=== PATIENT | female | born 1980 | race Caucasian/White ===

== ENCOUNTER → 2021-03-16 13:22 | Outpatient (BNVA) | payer OTHER, SELFPAY | PROVIDERS: Family Provider Family Medicine; Visit Provider Specialist | DX: H47.10 Unspecified papilledema (principal); R51.9 Headache, unspecified; Z87.891 Personal history of nicotine dependence | CPT/HCPCS: 99205 ==

== ENCOUNTER 2023-07-21 07:33 | Outpatient (CLI) | payer OTHER, SELFPAY ==
--- NOTE | 2023-07-21 07:46 | MM_ITS ---
WS: [id number] SCREENING DIGITAL BREAST TOMOSYNTHESIS MAMMOGRAM WITH CAD HISTORY: SCREENING COMPARISON: None available. Bilateral CC and MLO with tomosynthesis and synthetic mammography submitted. Computer aided detection analyzed. Breast composition: There are scattered areas of fibroglandular density. Well-circumscribed mass uppe r outer quadrant LEFT breast at a middle depth measures 10 x 12 x 13 mm. No additional suspicious mas ses or findings. IMPRESSION: MM/[place] [id number] BI-RADS: 0-Incomplete: Need additional imaging evaluation FOLLOW UP: Need Additional Imaging Recommendation: Limited LEFT breast ultrasound, upper outer quadrant LEFT breas t, middle depth.
== END 2023-07-21 07:34 | disposition home or self-care (01) ==
LOC: RAD 07:35
PROVIDERS: Family Provider Family Medicine; PCP Family Medicine; Visit Provider Family Medicine
DX: Z12.31 Encounter for screening mammogram for malignant neoplasm of breast (principal)
CPT/HCPCS: 77063; 77067

== ENCOUNTER 2023-08-28 10:59 | Outpatient (CLI) | payer OTHER, SELFPAY ==
--- NOTE | 2023-08-28 11:06 | US_ITS ---
WS: [id number] ULTRASOUND LEFT BREAST HISTORY: L BREAST LUMP COMPARISON: 07/21/2023 TECHNIQUE: 2-D and Doppler. Ultrasound directed to the upper outer quadrant of the LEFT breast as suggested by the mammography. T here is a simple but slightly lobulated cyst at 10:00 measuring 1.4 x 0.7 x 1.1 cm. Good through saxena smission. No solid component. US/US breast LT limited* [id number] IMPRESSION: BI-RADS: 2-Benign FOLLOW-UP: 1 Year Follow-up Patient to return to annual screening mammography. The mammographic mass descri bed is a simple cyst.
== END 2023-08-28 11:00 | disposition home or self-care (01) ==
LOC: RAD 11:00
PROVIDERS: Family Provider Family Medicine; PCP Family Medicine; Visit Provider Family Medicine
DX: N63.21 Unspecified lump in the left breast, upper outer quadrant (principal)
CPT/HCPCS: 76642

== ENCOUNTER 2024-12-18 23:50 | Observation (INO) | payer OTHER, SELFPAY ==
--- NOTE | 2024-12-18 23:52 | ECG_ITS ---
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1980 Requested By: Iman Grimes Order Number: [id number] Reading MD: MATT HINOJOSA Measurements Intervals [place] Rate: 69 P: 12 SD: 150 QRS: 33 QRSD: 73 T: 22 QT: 362 QTc: 390 Interpretive Statements SINUS RHYTHM LOW QRS VOLTAGE IN PRECORDIAL LEADS [QRS DEFLECTION < 1.0 mV IN CHEST LEADS] POSSIBLE ANTERIOR MYOCARDIAL INFARCTION , OF INDETERMINATE AGE [30 ms Q WAVE IN V3/V4, OR R < 0.2 mV IN V4] No previous ECG available for comparison Electronically Signed On 12-20-2024 20:14:47 CDT by MATT HINOJOSA [id number]
--- OUTSIDE RECORDS SUMMARY | 2024-12-18 23:57 | XMS_ITS | Clinical Summary ---
Author Organization [facility] Address [address] [place] [address] Care Team Providers Care Crop Setting Out Machine Operator Name Role Phone Kenneth Morrissey MD Primary Care Provider [phone] Allergies Active Allergy Reactions Criticality Noted Date Comments Codeine Nausea and Vomiting Low 03/15/2012 Morphine Nausea and Vomiting Low 03/15/2012 Medications No known medications Active Problems Problem Noted Date Diagnosed Date Sensory hearing loss, unilateral 03/15/2012 Overview (03/15/2012): low ferquency very mild SNHL right ear Family History Medical History Relation Name Comments Heart Disease Maternal Grandmother Asthma Mother Heart Disease Mother Relation Name Status Comments Maternal Grandmother Mother Social History Tobacco Use Types Packs/Day Years Used Date Smoking Tobacco: Former Cigarettes Q uit: 07/29/2011 Smokeless Tobacco: Never Alcohol Use Standard Drinks/Week Comments Yes 0 (1 standard drink = 0.6 oz pur e alcohol) OCCASIONAL Comments No Sex and Gender Information Value Date Recorded Sex Assigned at Not on file Legal Sex Female 1:37 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 Gender Identity Not on file Sexual Orientation Not on file Occupation Industry Job Start Date Job End Date Not on file Not on file Not on file Not on file Last Filed Vital Signs Vital Sign Reading Time Taken Comments Blood Pressure 107/69 03/15/2012 12:03 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 Pulse 70 03/15/2012 12:03 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 Temperature - - Respiratory Rate - - Oxygen Saturation - - Inhaled Oxygen Concentration - - Weight 99.8 kg (220 lb) 03/15/2012 12:03 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 Height 162.6 cm (5' 4 ) 03/15/2012 12:03 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 Body Mass Index 37.76 03/15/2012 12:03 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 Plan of Treatment Health Maintenance Due Date Last Done Comments DTAP/TDAP/TD VACCINES (1 - Tdap) 2001 HEPATITIS B VACCINES (1 of 3 - 19+ 3-dose series) 08/2000 HPV/Cotest (21-29) 2003 HPV VACCINES (1 - 3-dose SCDM series) 2009 CERVICAL CANCER SCREENING 02/13/2012 HPV/Cotest (30-65) 02/13/2012 PAP SMEAR 02/13/2012 BREAST CANCER SCREENING 2022 INFLUENZA VACCINE (#1) 2024 Insurance Formerly [facility] [place] [address] [id number] [facility] Care Teams Crop Setting Out Machine Operator Relationship Specialty Start Date End Date Kenneth Morrissey MD [address] [place] [address] [place] [phone] PCP - General Family Practice 03/15/12
[2024-12-18 23:59] VITALS: BP 152/95; PULSE 73; RESP 18; TEMP 36.5; O2SAT 99; BMI 42.9
[2024-12-19] VITALS (19 sets, daily range): BP systolic 101–162; BP diastolic 60–94; PULSE 63–86; RESP 14–20; TEMP 36.2–37.2; O2SAT 93–99; BMI 45.3
--- NOTE | 2024-12-19 00:01 | XRR_ITS ---
PROCEDURE INFORMATION: Exam: XR Chest Exam date and time: 12/19/2024 12:15 AM Age: 44 years old Clinical indication: Chest wall pain; Additional info: Cp TECHNIQUE: Imaging protocol: Radiologic exam of the chest. Views: 1 view. COMPARISON: No relevant prior studies available. FINDINGS: Lungs: Unremarkable. No consolidation. Pleural spaces: Unremarkable. No pleural effusion. No pneumothorax. Heart/Mediastinum: Unremarkable. No cardiomegaly. Bones/joints: Unremarkable. XR/XR chest 1V portable [id number] IMPRESSION: No acute findings.
--- NOTE | 2024-12-19 00:13 | USR_ITS ---
PROCEDURE INFORMATION: Exam: US Abdomen, Limited; Right Upper Quadrant Exam date and time: 12/19/2024 12:38 AM Age: 44 years old Clinical indication: Abdominal pain; Epigastric; Additional info: Ruq pain TECHNIQUE: Imaging protocol: Real time ultrasound of the abdomen with image documentation. Limited exam focused on the right upper quadrant. COMPARISON: No relevant prior studies available. FINDINGS: Liver: Hepatic echogenicity is within normal limits. Hepatic echotexture is normal. No surface nodularity. No solid hepatic lesion. Gallbladder: The gallbladder is mildly distended. Cholelithiasis is present. Stones are seen in the gallbladder neck. Question of mild gallbladder wall thickening measuring up to 4 mm at the body. Director Of Physical Education measurement of up to 8 mm at the fundus , which may be projectional or artifactual. No pericholecystic fluid. A positive Stone's sign was reported by the sales order administrator. Biliary ducts: The common bile duct measures up to 5 mm, within normal limits. Pancreas: The pancreas is partially obscured secondary to overlying bowel gas. No ductal dilatation is discretely identified. Right kidney: The right kidney measures 12.2 x 5.1 x 4.7 cm. Renal echogenicity is normal. Cortical thickness is normal. No hydronephrosis or solid renal mass is noted. Aorta: The imaged aorta is nonaneurysmal. Portal venous: The portal vein is patent with hepatopetal flow. Intraperitoneal space: No ascites is present. US/US gall bladder [id number] IMPRESSION: Cholelithiasis with questioned mild gallbladder wall thickening. Reportedly positive sonographic Stone's sign. Findings are equivocal for acute calculus cholecystitis. Correlate with patient history/laboratory values. Further characterization with HIDA scan should be considered. Consider surgical consultation.
--- NOTE | 2024-12-19 00:14 | ED_ITS ---
HPI - Abdominal Pain 2 General: Chief Complaint: Abdominal Pain Stated Complaint: abd pain n/v Time Seen by Provider: 12/18/24 23:51 Source: patient Mode of arrival: ambulatory Limitations: no limitations History of Present Illness: 44-year-old female states that she has b een having abdominal pain over the last 3 to 4 days. States been having right upper quadrant pains that worsened tonight states tonight the pain got severe rates it a 9 out of 10 has had some nausea. She denies any vomiting or fever denies any worse improved factors. Associated Symptoms: Denies chills, diarrhea, fever(s), nausea and vomiting Related Data Previous Rx's ?Medication ?Instructions ?Recorded topiramate 100 mg tablet (Topamax) 100 mg PO DAILY #30 tabs 03/16/21 Allergies Allergy/AdvReac Type Severity Reaction Status Date / Time codeine Allergy ADR-Headach Verified 12/19/24 00:02 e morphine Allergy ADR-Vomitin Verified 12/19/24 00:02 g Review of Systems 2 Const: Denies: fever(s), chills, body aches or change in appetite ENMT: Denies: throat pain or dental pain Card: Denies: chest pain Resp: Denies: dyspnea GI: Reports: abdominal pain; Denies: nausea, vomiting or diarrhea Musc: Denies: neck pain or back pain Skin/Breast: Denies: rash Neuro: Denies: headache(s) PFSH ED 2 PFSH: Social History Smoking and tobacco/nicotine status: former use of tobacco/nicotine Physical Exam 2 Const: COMMON NORMALS: no acute distress, patient oriented x3 and healthy appearing HENMT: COMMON NORMALS: normocephalic and atraumatic HEAD & SCALP: n ormocephalic and atraumatic Eye: COMMON NORMALS: conjunctivae normal CONJUNCTIVA: Yes conjunctivae normal Neck/C-Spine: COMMON NORMALS: full ROM and supple Chest: COMMONS NORMALS: normal inspection of the chest Resp: COMMON NORMALS: normal respiratory effort, No retractions, No use of accessory muscles and clear to auscultation bilaterally AUSCULTATION: clear to auscultation bilaterally Cardio: COMMON NORMALS: regular rate, regular rhythm and No murmurs present (Cardio) RATE: regular rate RHYTHM: regular rhythm GI: COMMON NORMALS: Normal to inspection, nondistended, normoactive bowel sounds present, Soft to palpation and no masses PALPATION: Yes Soft to palpation and Yes Tenderness to palpation present (GI) Details: RUQ Extremity: COMMON NORMALS: normal to inspection and full ROM Neuro: COMMON NORMALS: patient oriented x3, moves all extremities and no focal motor deficits Psych: COMMON NORMALS: mental status grossly normal, Normal thought process present and cooperative THOUGHT PROCESS: Normal thought process present Skin: COMMON NORMALS: no rashes or lesions noted and no wounds GENERAL SKIN EXAM: no rashes or lesions noted Course 2 Vital Signs: Vital signs: Vital Signs Temperature 97.7 F 12/18/24 23:59 Pulse Rate 67 12/19/24 00:45 Respiratory Rate 18 12/19/24 00:45 Blood Pressure 130/83 12/19/24 00:45 Pulse Oximetry 95 12/19/24 00:45 Oxygen Delivery Me thod Room Air 12/19/24 00:45 MDM - Abdominal Pain Medical Decision Making Patient presents for abdominal pain she is tender right upper quadrant has an elevated white count wall gallstones and thickened gallbladder wall of the consistent with cholecystitis spoke to surgeon will admit at this time Medical Records I reviewed the patient's medical records. Lab Data I reviewed the patient's lab results. 12/19/24 00:18 12/19/24 01:07 Labs/Radiology: Radiology Impressions Chest X-Ray 12/19/24 00:01 IMPRESSION: No acute findings. Gallbladder Ultrasound 12/19/24 00:13 IMPRESSION: Cholelithiasis with questioned mild gallbladder wall thickening. Reportedly positive sonographic Stone's sign. Findings are equivocal for acute calculus cholecystitis. Correlate with patient history/laboratory values. Further characterization with HIDA scan should be considered. Consider surgical consultation. ADDENDUM: 12/19/24 0155 THIS REPORT CONTAINS FINDINGS THAT MAY BE CRITICAL TO PATIENT CARE. The findings were verbally communicated via telephone conference with AXEL VIZCAINO at 1:54 AM CDT on 12/19/2024. The findings were acknowledged and understood. Laboratory Results WBC 14.47 10^3/uL (3.29-11.43) H 12/19/24 00:18 RBC 4.45 10^6/uL (3.85-5.65) 12/19/24 00:18 Hgb 13.00 g/dL (11.27-16.99) 12/19/24 00:18 Hct 39.9 % (36-47) 12/19/24 00:18 MCV 89.7 fl (85-98) 12/19/24 00:18 MCH 29.2 pg (27-33) 12/19/24 00:18 MCHC 32.6 g/dL (30-55) 12/19/24 00:18 RDW 13.8 % (12.1-15.1) 12/19/24 00:18 Plt Count 478 10^3/cmm (157-399) H 12/19/24 00:18 MPV 9.3 fL (7.4-10.4) 12/19/24 00:18 Neut % (Auto) 62.8 % 12/19/24 00:18 Lymph % (Auto) 27.3 % 12/19/24 00:18 Morrow % (Auto) 7.8 % 12/19/24 00:18 Eos % (Auto) 1.2 % 12/19/24 00:18 Baso % (Auto) 0.6 % 12/19/24 00:18 Neut # (Auto) 9.09 10^3/uL (1.8-7.7) H 12/19/24 00:18 Lymph # (Auto) 4.0 10^3/uL (0.8-4.8) 12/19/24 00:18 Morrow # (Auto) 1.1 10^3/uL (0.2-0.9) H 12/19/24 00:18 Eos # (Auto) 0.2 10^3/uL (0.0-0.8) 12/19/24 00:18 Baso # (Auto) 0.1 10^3/uL (0.0-0.1) 12/19/24 00:18 Nucleated RBC % (auto) 0 % 12/19/24 00:18 Nucleated RBCs # 0.0 /100WBC 12/19/24 00:18 Sodium 139 mmol/L (136-145) 12/19/24 01:07 Potassium 3.9 mmol/L (3.5-5.1) 12/19/24 01:07 Chloride 104 mmol/L (98-107) 12/19/24 01:07 Carbon Dioxide 24 mmol/L (22-29) 12/19/24 01:07 Anion Gap 14.9 (5-19) 12/19/24 01:07 BUN 12 mg/dL (6-20) 12/19/24 01:07 Creatinine 0.8 mg/dL (0.5-0.9) 12/19/24 01:07 GFR Calculation 78.7 mL/min (90-130) L 12/19/24 01:07 Glucose 114 mg/dL (65-115) 12/19/24 01:07 Calculated Osmolality 289 mOsm/kg (285-295) 12/19/24 01:07 Calcium 9.0 mg/dL (8.5-10.5) 12/19/24 01:07 Total Bilirubin 0.2 mg/dL (0.15-1.2) 12/19/24 01:07 AST 14 U/L (0-32) 12/19/24 01:07 ALT 14 U/L (0-33) 12/19/24 01:07 Alkaline Phosphatase 86 U/L (35-105) 12/19/24 01:07 Troponin T Baseline < 6 ng/L (0-10) 12/19/24 01:07 Total Protein 7.0 g/dL (6.6-8.7) 12/19/24 01:07 Albumin 3.9 g/dL (3.5-5.2) 12/19/24 01:07 Globulin 3.1 g/dL (1.3-4.6) 12/19/24 01:07 Lipase 27 U/L (13-60) 12/19/24 01:07 HCG, Qual Negative (Negative) 12/19/24 01:07 All radiology interpretation(s) finalized by discharge EKG Data EKG 1: I personally reviewed and interpreted this EKG as follows: EKG interpretation date: 12/18/24 EKG interpretation time: 23:58 Interpretation: nsr hr [address] elevation qrs 73 qtc 382 Discharge Plan Discharge Condition: Stable Prescriptions: No Action topiramate [Topamax] 100 mg tablet 100 mg PO DAILY Qty: 30 5RF Referrals: Stoney Browne MD [Primary Care Provider, Family Practice] Print Language: Cymraes Coding Level of Care Code ED Upper Doubler for Chg Fwd
[2024-12-19 00:25] LABS: Hematocrit 39.9 % (36-47); Hemoglobin 13.00 g/dL (11.27-16.99); Mean Corpuscular HGB Conc 32.6 g/dL (30-55); Mean Corpuscular Hemoglobin 29.2 pg (27-33); Mean Corpuscular Volume 89.7 fl (85-98); Nucleated Red Blood Cells % 0 %; Platelet Count 478 10^3/cmm (157-399); Red Blood Count 4.45 10^6/uL (3.85-5.65); White Blood Count 14.47 10^3/uL (3.29-11.43)
[2024-12-19] MEDS: ondansetron 2 mg/ML SDV 2 mL 4 MG IVP ×3 (00:31→13:28)
[2024-12-19] MEDS: HYDROmorphone 0.5 MG/0.5 ML INJ 1 MG IVP (00:31)
[2024-12-19 01:30] LABS: HCG, Serum Qual Negative (Negative)
[2024-12-19 01:39] LABS: Alanine Aminotransferase 14 U/L (0-33); Albumin Level 3.9 g/dL (3.5-5.2); Alkaline Phosphatase 86 U/L (35-105); Anion Gap 14.9 (5-19); Aspartate Amino Transferase 14 U/L (0-32); Blood Urea Nitrogen 12 mg/dL (6-20); Calcium 9.0 mg/dL (8.5-10.5); Carbon Dioxide 24 mmol/L (22-29); Chloride 104 mmol/L (98-107); Creatinine Clr Calc Pharmacy 113.0612; Globulin 3.1 g/dL (1.3-4.6); Glucose 114 mg/dL (65-115); Lipase 27 U/L (13-60); Osmolality Calculated 289 mOsm/kg (285-295); Potassium 3.9 mmol/L (3.5-5.1); Sodium 139 mmol/L (136-145); Total Protein 7.0 g/dL (6.6-8.7)
[2024-12-19 01:41] LABS: Troponin(5th) Baseline < 6 ng/L (0-10)
--- NOTE | 2024-12-19 02:07 | ECG_ITS ---
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
[2024-12-19] MEDS: HYDROmorphone 0.5 MG/0.5 ML INJ IVP ×2 (02:17→06:03)
[2024-12-19] MEDS: piperacillin-tazobactam 3.375 GM in sodium chloride 0.9% (plus) 50 ML IV ×4 (02:20→23:35)
--- NOTE | 2024-12-19 03:20 | P.HP_ITS ---
Providers/Chief Complaint 2 Admitting Physician: Kristine Leach MD--- patient seen after 12 midnight Primary Care Provider: Stoney Browne MD Chief Complaint: abd pain n/v History of Present Illness Sadiq Kapoor is a 44 year old female who had had ongoing intermittent right upper quadrant pain off-and-on over the past several months that she did not think anything much about it. This time the pain came all of a sudden doubled over in a very excruciating right upper quadrant pain patient is a fair female in her 40s, fertile, and fatty classifies gallbladder disease, the 4 Fs. Gallbladder was significant for gallbladder disease for cholecystitis. LFTs were normal showing that there are no obstructive pattern. ED attending consulted the surgeon for surgery. Patient is n.p.o. after 12 midnight and on Dilaudid for pain management patient is allergic to morphine. Patient is resting well in the room. Patient for surgery today. Patient was seen after 12 midnight by the hospitalist, myself. Patient has some leukocytosis but no febrile illness patient had received a dose of Zosyn and it is hughes to continue empiric antibiotics at this time. Review of Systems 2 Narrative: System review upon tenogram reviewed were significant for right upper quadrant pain of the GI otherwise unremarkable. Medications/Allergies Home Medications ?Medication ?Instructions ?Recorded ?Confirmed ?Last Taken ?Type topiramate 100 mg tablet (Topamax) 100 mg PO DAILY #30 tabs 03/16/21 03/16/21 Unknown Rx Allergies Allergy/AdvReac Type Severity Reaction Status Date / Time codeine Allergy ADR-Headach Verified 12/19/24 00:02 e morphine Allergy ADR-Vomitin Verified 12/19/24 00:02 g PFSH Acute 2 PFSH: Social History Smoking and tobacco/nicotine status: former use of tobacco/nicotine Vitals/I&O/Wt Last Vital Signs Temp 97.7 F 12/18/24 23:59 Pulse 68 12/19/24 02:23 Resp 18 12/19/24 00:45 BP 139/83 12/19/24 02:23 Pulse Ox 96 12/19/24 02:23 O2 Del Method Room Air 12/19/24 02:16 12/18/24 12/18/24 12/19/24 14:59 22:59 06:59 Intake Total 50 / 50 Balance 50 / 50 Weight last 48 hrs Weight 119.658 kg Weight 113.398 kg Physical Exam 2 Narrative: Patient is not ill-appearing but looks fairly uncomfortable however responding to Dilaudid every 4 hours as needed HEENT normocephalic atraumatic neck neck is supple cardiovascular heart rate is regular lungs are pretty much clear abdomen is soft with some tenderness in the right upper quadrant region. unremarkable extremities are intact no edema has good pulses neurology has no focality lab studies lab studies reviewed and noted. Data 12/19/24 03:49 12/19/24 03:49 A&P Assessment and plan 1. Acute cholecystitis: 2. Right upper quadrant pain: 3. Leukocytosis: 4. Dehydration: Plan: #1 Acute cholecystitis - Admit to general medical floor for care - N.p.o. after 12 midnight for possible procedure - IV fluid normal saline at 100 cc/h. - Empiric antibiotics with Zosyn per order - General Surgeon on case, consulted by ED attending #2 Leukocytosis - Due to infection or inflammatory process - Continue empiric antibiotics with Zosyn good for the right upper quadrant processes in infection - Continue hydration gently #3 Pain management - Pain is based on the inflammation of the gallbladder - Continue IV Dilaudid 0.5 mg every 4 as needed and this has been effective - Patient has been encouraged to ask for pain medication once sign of pain is reoccuring #4 GI and DVT prophylaxis in place Dehydration -Continue rehydrating PDMP PDMP Reviewed: Not Reviewed Attestations 2 Medical Necessity Statement*: This is a new patient admission for much excruciating pain with finding of acute cholecystitis requiring surgery. Patient needs at least 2 midnights for optimization of care. Coding Level of Care Code 14201 Diagnoses Acute cholecystitis K81.0 Right upper quadrant pain R10.11 Leukocytosis D72.829 Dehydration E86.0 Time Spent (min) 60
[2024-12-19 03:55] LABS: Hematocrit 39.4 % (36-47); Hemoglobin 12.50 g/dL (11.27-16.99); Mean Corpuscular HGB Conc 31.7 g/dL (30-55); Mean Corpuscular Hemoglobin 29.3 pg (27-33); Mean Corpuscular Volume 92.5 fl (85-98); Nucleated Red Blood Cells % 0 %; Platelet Count 431 10^3/cmm (157-399); Red Blood Count 4.26 10^6/uL (3.85-5.65); White Blood Count 12.69 10^3/uL (3.29-11.43)
[2024-12-19 04:12] LABS: Alanine Aminotransferase 14 U/L (0-33); Albumin Level 3.8 g/dL (3.5-5.2); Alkaline Phosphatase 89 U/L (35-105); Anion Gap 16.4 (5-19); Aspartate Amino Transferase 14 U/L (0-32); Blood Urea Nitrogen 13 mg/dL (6-20); Calcium 8.9 mg/dL (8.5-10.5); Carbon Dioxide 22 mmol/L (22-29); Chloride 105 mmol/L (98-107); Creatinine Clr Calc Pharmacy 116.6825; Globulin 3.3 g/dL (1.3-4.6); Glucose 140 mg/dL (65-115); Magnesium 2.0 mg/dL (1.7-2.3); Osmolality Calculated 290 mOsm/kg (285-295); Potassium 4.4 mmol/L (3.5-5.1); Sodium 139 mmol/L (136-145); Total Protein 7.1 g/dL (6.6-8.7)
[2024-12-19 08:25] LABS: Glucose Urine UA Negative (Normal); Nitrate Urine Negative (Negative); Specific Gravity, Urine 1.023 (1.005-1.030)
[2024-12-19 08:30] LABS: Add Urine Microscopic? YES
--- NOTE | 2024-12-19 08:31 | ECG_ITS ---
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
--- NOTE | 2024-12-19 08:47 | P.CONIM_ITS ---
Providers/Reason For Consult 2 Consulting Physician/Specialty*: Dr Abraham Foster Reason for Consult*: Abdominal Pain Attending Physician: Juanjo Ozuna MD Primary Care Provider: Stoney Browne MD History of Present Illness History of Present Illness Sadiq Kapoor is a 44 year old female with chief complaint of abdominal pain started on Monday. Her pain was in the midepigastric right upper quadrant region and has progressed since Monday. She came to the emergency room yesterday with worsening pain and was found to have an elevated white blood cell count and a thickened gallbladder with stones on right upper quadrant ultrasound. She describes the pain as 6-7 out of 10 in severity and radiates to the right shoulder. She has associated nausea but denies any emesis during this time. She has no changes in her bowel movements. She denies any tea colored urine or acholic stools. This is the first time that she has had any episodes like this. She has no other complaints at this time. Review of Systems 2 Narrative: System review upon tenogram reviewed were significant for right upper quadrant pain of the GI otherwise unremarkable. Medications/Allergies Home Medications ?Medication ?Instructions ?Recorded ?Confirmed ?Last Taken ?Type No Known Home Medications 12/19/2412/09 Unknown History Allergies Allergy/AdvReac Type Severity Reaction Status Date / Time codeine Allergy ADR-Headach Verified 12/19/24 00:02 e morphine Allergy ADR-Vomitin Verified 12/19/24 00:02 g Current Medications Generic Name Dose Route Start Last Admin Trade Name Freq PRN Reason Stop Dose Admin Docusate Sodium 100 mg 12/19/24 09:00 12/19/24 07:52 Docusate Sodium 100 Mg Capsule PO Not Given BID JERICHO Hydromorphone HCl 0.5 mg 12/19/24 03:18 12/19/24 06:03 Hydromorphone 0.5 Mg/0.5 Ml Inj IVP 0.5 mg Q4H PRN Administration MODERATE AGITATION Piperacillin Sod/Tazobactam 50 mls @ 100 mls/hr 12/19/24 02:00 12/19/24 08:37 Sod 3.375 gm/ Sodium Chloride IV Infused Q6H JERICHO Infusion Protocol Sodium Chloride 1,000 mls @ 100 mls/hr 12/19/24 03:31 12/19/24 04:46 Sodium Chloride 0.9% IV 100 mls/hr .Q10H JERICHO Administration PFSH Acute 2 PFSH: Social History Smoking and tobacco/nicotine status: former use of tobacco/nicotine Vitals/I&O/Wt Last Vital Signs Temp 98.2 F 12/19/24 07:58 Pulse 63 12/19/24 07:58 Resp 18 12/19/24 07:58 BP 135/83 12/19/24 07:58 Pulse Ox 98 12/19/24 07:58 O2 Del Method Room Air 12/19/24 07:58 12/18/24 12/19/24 12/19/24 22:59 06:59 14:59 Intake Total 50 / 50 50 / 50 Output Total 200 / 200 Balance 50 / 50 -150 / -150 Weight last 48 hrs Weight 264 lb Weight 263 lb 12.8 oz Weight 250 lb Physical Exam 2 Narrative: Patient is not ill-appearing but looks fairly uncomfortable however responding to Dilaudid every 4 hours as needed HEENT normocephalic atraumatic neck neck is supple cardiovascular heart rate is regular lungs are pretty much clear abdomen is soft with some tenderness in the right upper quadrant region, + tenderness in RUQ region with no reboun rigidity or guarding. unremarkable extremities are intact no edema has good pulses neurology has no focality lab studies lab studies reviewed and noted. Data 12/19/24 03:49 12/19/24 03:49 A&P Assessment and plan 1. Right upper quadrant pain: 2. Acute cholecystitis: Will plan 4 OR today for cholecystectomy secondary to persistent symptoms and findings on workup. Patient received IV antibiotics in the ER and is currently receiving another dose of Zosyn in her room currently. She is NPO. We discussed both surgical and nonsurgical interventions and with her and her agreed to proceed with surgical intervention. All questions and concerns were answered prior to deciding on surgery. All risks and benefits of surgery were discussed with the patient and her prior to proceeding with any surgical intervention. PDMP PDMP Reviewed: Not Reviewed Coding Level of Care Code Acute Code for Chg Fwd Diagnoses Right upper quadrant pain R10.11 Acute cholecystitis K81.0
--- OUTSIDE RECORDS SUMMARY | 2024-12-19 09:17 | XMS_ITS | Clinical Summary ---
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 Gender Identity Not on file Sexual Orientation Not on file Occupation Industry Job Start Date Job End Date Not on file Not on file Not on file Not on file Last Filed Vital Signs Vital Sign Reading Time Taken Comments Blood Pressure 107/69 03/15/2012 12:03 PM SOLE STAINER Pulse 70 03/15/2012 12:03 PM SOLE STAINER Temperature - - Respiratory Rate - - Oxygen Saturation - - Inhaled Oxygen Concentration - - Weight 99.8 kg (220 lb) 03/15/2012 12:03 PM SOLE STAINER Height 162.6 cm (5' 4 ) 03/15/2012 12:03 PM SOLE STAINER Body Mass Index 37.76 03/15/2012 12:03 PM SOLE STAINER Plan of Treatment Health Maintenance Due Date Last Done Comments DTAP/TDAP/TD VACCINES (1 - Tdap) 2001 HEPATITIS B VACCINES (1 of 3 - 19+ 3-dose series) 08/2000 HPV/Cotest (21-29) 2003 HPV VACCINES (1 - 3-dose SCDM series) 2009 CERVICAL CANCER SCREENING 02/13/2012 HPV/Cotest (30-65) 02/13/2012 PAP SMEAR 02/13/2012 BREAST CANCER SCREENING 2022 INFLUENZA VACCINE (#1) 2024 Insurance [facility] [address] [id number] [facility] Care Teams Pricing/Signage Team Member Relationship Specialty Start Date End Date Kenneth Morrissey MD [address] [place] [address] [place] [phone] PCP - General Family Practice 03/15/12
[2024-12-19] MEDS: metoclopramide 5 mg/mL SDV 2 mL 10 MG IVP (10:56)
[2024-12-19] MEDS: fentaNYL 50 mcg/mL INJ 2mL IVP (10:57)
--- NOTE | 2024-12-19 10:57 | ANES.PREANE2 ---
Pre-Anesthetic Assessment Height/Weight: Height 1.63 m Weight 119.748 kg Temp Pulse Resp BP Pulse Ox O2 Del Method 97.2 F L 65 17 141/83 95 Room Air 12/19/24 10:05 12/19/24 10:05 12/19/24 10:05 12/19/24 10:05 12/19/24 10:05 12/19/24 10:05 Preop Diagnosis: Cholecystitis Operation Date: 12/19/24 11:05 Proposed Procedures p Laparoscopic Cholecystectomy(Not Applicable) - Abraham Foster DO Last intake: Intake Last Liquid Date 12/18/24 Last Liquid Time 22:00 Last Solid Date 12/18/24 Last Solid Time 16:30 Social No alcohol and No tobacco Exam alert, oriented x 3, clear to auscultation bilaterally and regular rate & rhythm Airway Submandibular: within normal limits Cervical ROM: within normal limits Mallampati: Class II History/ROS No significant history except as noted Metabolic Morbid Obesity Anesthetic Plan ASA status: 3E Anesthesia: General (GETA/RSI) Medications/Allergies Home Medications ?Medication ?Instructions ?Recorded ?Confirmed ?Last Taken ?Type No Known Home Medications 12/19/24 12/19/24 Unknown History Allergies Allergy/AdvReac Type Severity Reaction Status Date / Time codeine Allergy ADR-Headach Verified 12/19/24 00:02 e morphine Allergy ADR-Vomitin Verified 12/19/24 00:02 g Current Medications Generic Name Dose Route Start Last Admin Trade Name Freq PRN Reason Stop Dose Admin Docusate Sodium 100 mg 12/19/24 09:00 12/19/24 07:52 Docusate Sodium 100 Mg Capsule PO Not Given On Hold: 12/19/24 10:12 BID JERICHO Comment: Order held by Process Transfer Hydromorphone HCl 0.5 mg 12/19/24 03:18 12/19/24 06:03 Hydromorphone 0.5 Mg/0.5 Ml Inj IVP 0.5 mg On Hold: 12/19/24 10:12 Q4H PRN Administration Comment: Order held by Process MODERATE AGITATION Transfer Piperacillin Sod/Tazobactam 50 mls @ 100 mls/hr 12/19/24 02:00 12/19/24 08:37 Sod 3.375 gm/ Sodium Chloride IV Infused On Hold: 12/19/24 10:12 Q6H JERICHO Infusion Comment: Order held by Process Protocol Transfer Sodium Chloride 1,000 mls @ 100 mls/hr 12/19/24 03:31 12/19/24 04:46 Sodium Chloride 0.9% IV 100 mls/hr On Hold: 12/19/24 10:12 .Q10H JERICHO Administration Comment: Order held by Process Transfer [facility] Anesthesia Social History Smoking and tobacco/nicotine status: former use of tobacco/nicotine Data Anesthesia 12/19/24 03:49 12/19/24 03:49 Short CBC 12/19/24 12/19/24 Range/Units 00:18 03:49 WBC 14.47 H 12.69 H (3.29-11.43) 10^3/uL Hgb 13.00 12.50 (11.27-16.99) g/dL Hct 39.9 39.4 (36-47) % MCV 89.7 92.5 (85-98) fl Plt Count 478 H 431 H (157-399) 10^3/cmm Neut % (Auto) 62.8 79.9 % Neut # (Auto) 9.09 H 10.15 H (1.8-7.7) 10^3/uL BMP 12/19/24 12/19/24 12/19/24 00:18 01:07 03:49 Sodium Cancelled 139 139 Potassium Cancelled 3.9 4.4 Chloride Cancelled 104 105 Carbon Dioxide Cancelled 24 22 BUN Cancelled 12 13 Creatinine Cancelled 0.8 0.8 Glucose Cancelled 114 140 H Calcium Cancelled 9.0 8.9 Cardiac Enzymes 12/19/24 12/19/24 Range/Units 00:18 01:07 Troponin T Baseline Cancelled < 6 Liver Function 12/19/24 12/19/24 12/19/24 Range/Units 00:18 01:07 03:49 Total Bilirubin Cancelled 0.2 0.3 AST Cancelled 14 14 ALT Cancelled 14 14 Alkaline Phosphatase Cancelled 86 89 Albumin Cancelled 3.9 3.8 Urine 12/19/24 Range/Units 08:05 Urine Color Yellow (Yellow) Urine Appearance Cloudy A (CLEAR) Urine pH 6.5 (5-7) Ur Specific [place] 1.023 (1.005-1.030) Urine Protein Trace A (Negative) Urine Glucose (UA) Negative (Normal) Urine Ketones Negative (Negative) Urine Nitrate Negative (Negative) Urine Bilirubin Negative (Negative) Ur Leukocyte Esterase Trace A (Negative) Urine RBC >100 H (0-2) /hpf Urine WBC 11-20 H (0-5) /hpf
[2024-12-19] MEDS: ceFAZolin 3,000 MG in sodium chloride 0.9% (plus) 100 ML 200 MG IV (11:41)
--- NOTE | 2024-12-19 12:21 | W.PM.BPON ---
Preop Dx- acute cholecystitis Post op Dx- Same Procedure- Laparoscopic Cholecystectomy Complications- None EBL- 25 mls Specimen- Gallbladder
--- NOTE | 2024-12-19 13:05 | ANE.PACU2 ---
Inpatient post-anesthesia follow up: Airway intact: Yes Vital signs: Temperature 97.1 F Pulse Rate 68 Respiratory Rate 17 Blood Pressure 116/62 Pulse Oximetry 94 Oxygen Delivery Me thod Room Air Oxygen Flow Rate Fraction of Inspir ed Oxygen Hydration adequate: Yes Nausea and vomiting: No Pain level: controlled Mental status: Baseline
[2024-12-20] VITALS: BP 100/59; PULSE 77; RESP 16; TEMP 36.6; O2SAT 94
[2024-12-20 03:19] LABS: Hematocrit 35.0 % (36-47); Hemoglobin 11.50 g/dL (11.27-16.99); Mean Corpuscular HGB Conc 32.9 g/dL (30-55); Mean Corpuscular Hemoglobin 29.3 pg (27-33); Mean Corpuscular Volume 89.3 fl (85-98); Nucleated Red Blood Cells % 0 %; Platelet Count 421 10^3/cmm (157-399); Red Blood Count 3.92 10^6/uL (3.85-5.65); White Blood Count 17.06 10^3/uL (3.29-11.43)
[2024-12-20 03:44] LABS: Anion Gap 17.2 (5-19); Blood Urea Nitrogen 12 mg/dL (6-20); Calcium 8.3 mg/dL (8.5-10.5); Carbon Dioxide 22 mmol/L (22-29); Chloride 104 mmol/L (98-107); Creatinine Clr Calc Pharmacy 116.7345; Glucose 135 mg/dL (65-115); Osmolality Calculated 290 mOsm/kg (285-295); Potassium 4.2 mmol/L (3.5-5.1); Sodium 139 mmol/L (136-145)
[2024-12-20 03:58] VITALS: BP 112/70; PULSE 66; RESP 16; TEMP 36.4; O2SAT 96
--- NOTE | 2024-12-20 07:36 | P.OP_ITS ---
Anesthesia: [General anesthesia] Complications: [None] Brief history/preop diagnosis: [This is a 44-year-old female who presents to the emergency room with chief complaint of right upper quadrant pain and was found to have acute cholecystitis on workup and we elected to proceed with laparoscopic cholecystectomy.] Full operative report: [Preoperative diagnosis acute cholecystitis Postoperative diagnosis acute cholecystitis Procedure: Laparoscopic cholecystectomy Specimen gallbladder EBL: 25 mL Complications: None Procedure: Patient was brought to the operating room and placed on the operating table in supine position. Abdomen was prepped and draped in usual sterile fashion. A timeout was completed verifying correct patient procedure and positioning prior to beginning procedure. Using a 11 blade scalpel incision was made inferior to the umbilicus approximately 1 cm and using a 10 mm Optiview trocar and laparoscope the abdomen was entered under direct visualization. The abdomen was then insufflated to 1215 mmHg the patient tolerated well. The patient was then placed in reverse indelible position with the right side up. 3 more ports were placed a 12 mm epigastric port was placed under direct visualization and then 2 more right subcostal 5 mm ports were placed under direct visualization. No bleeding or injury was noted on initial insertion. A grasper was placed to the lateral 5 mm port and grasped the dome of the gallbladder and this was retracted up over the dome of the liver to the dorsal right shoulder to fully expose the gallbladder and close triangle. Using another grasper and a [place] dissector the gallbladder fundus was grabbed and retracted laterally to expose the contents of close triangle using a [place] dissector this was fully dissected out. Great care was taken to avoid injury to any vessels or surrounding structures. Once the close triangle was fully dissected and the cystic duct and cystic artery were identified clip structural analyst was used to doubly clipped both the artery and the duct as well as 1 more proximal clip and laparoscopic samuel were used to transect the duct and the artery. Once this was completed and after a sufficient view of close triangle to ensure safety and no other structures were ligated the gallbladder was then removed from the gallbladder fossa using lecture cautery. Taking care to maintain hemostasis and no bile or stones were spilled during this process. The gallbladder was found to be acutely edematous and erythematous from the cholecystitis. This was dissected off the gallbladder fossa and placed in an Endo catch bag. This was then removed from the field through the epigastric port. Again once this was done the abdomen was irrigated and hemostasis was maintained throughout this process. Once this was completed the fascia of the 12 mm ports at the epigastric and the inferior umbilical port site were closed using 0 Vicryl suture and the skin was closed using 4-0 Monocryl sutures in a inverted subcuticular fashion. Skin glue was then placed over these incision sites and the patient was taken the PACU in stable condition. Patient tolerated the procedure well.]
--- NOTE | 2024-12-20 07:41 | P.PN_ITS ---
Subjective 2 Subjective: Patient seen and examined doing well this morning with no complaints. Tolerating her diet. Pain is well-controlled. She denies any nausea or vomiting. Ambulating in her room with no issues. Voiding spontaneously. Having bowel movements and passing flatus. No acute events overnight. Vitals/I&O/Wt Last Vital Signs Temp 97.6 F 12/20/24 03:58 Pulse 66 12/20/24 03:58 Resp 16 12/20/24 03:58 BP 112/70 12/20/24 03:58 Pulse Ox 96 12/20/24 03:58 O2 Del Method Room Air 12/20/24 00:00 12/19/24 12/20/24 12/20/24 22:59 06:59 14:59 Intake Total 590 / 1790 1096.667 / 2886.667 Output Total 400 / 610 500 / 1110 Balance 190 / 1180 596.667 / 1776.667 Weight last 48 hrs Weight 266 lb Weight 264 lb Weight 263 lb 12.8 oz Weight 250 lb Physical Exam 2 Narrative: Patient is not ill-appearing but looks fairly uncomfortable however responding to Dilaudid every 4 hours as needed HEENT normocephalic atraumatic neck neck is supple cardiovascular heart rate is regular lungs are pretty much clear abdomen is soft with some tenderness in the right upper quadrant region, + tenderness in RUQ region with no reboun rigidity or guarding. unremarkable extremities are intact no edema has good pulses neurology has no focality lab studies lab studies reviewed and noted. Data 12/20/24 02:58 12/20/24 02:58 A&P Assessment and plan 1. Acute cholecystitis: Patient doing well this morning. Tolerated surgery well yesterday. No complaints this morning. Pain is well-controlled and tolerating a diet. Ambulating in her room. DC IV antibiotics. No need for further antibiotics. Pain control and nausea control. Okay for discharge home from my standpoint. Will discharge home today. PDMP PDMP Reviewed: Not Reviewed Attestations 2 Medical Necessity Statement*: Will discharge home today. Coding Level of Care Code Acute Code for [facility] Diagnoses Acute cholecystitis K81.0
[2024-12-20 07:43] VITALS: BP 112/69; PULSE 68; RESP 18; TEMP 36.7; O2SAT 95
--- NOTE | 2024-12-20 08:45 | PC.NURSE ---
Patient is A&Ox3. Respirations even and non-labored on room air. Reviewed patient discharge with patient and significant other. Patient verbalized understanding of discharge instructions including follow up appointments and pain medications. Patient was wheel chaired to private car at this time.
--- NOTE | 2024-12-20 09:21 | P.DS_ITS ---
Discharge Providers Date of Admission: 12/19/24 03:31 Date of Discharge: December 20, 2024 Attending Provider at Admission: Kristine Leach MD Attending Provider at Discharge: Juanjo Ozuna MD Primary Care Provider: Stoney Browne MD Diagnoses at Discharge Discharge Diagnosis 1. Acute cholecystitis: Details from hospital stay: Patient had laparoscopic cholecystectomy yesterday white count still elevated but was doing well. I was unable to see the patient personally as she was discharged prior to my arriving in her room by Dr. Foster Reason for Visit Reason for Visit: abd pain n/v Discharge Data Studies Completed and Pending Completed Studies During Hospitalization Category Date Time Status XR chest 1V portable [id number] Stat Exams 12/19/24 00:01 Completed US gall bladder [id number] Stat Ultrasound 12/19/24 00:13 Completed Pending at discharge Category Date Time Status Pathology: Surgical [PTH] Routine Pth 12/19/24 12:22 Received Radiology Impressions Chest X-Ray 12/19/24 00:01 IMPRESSION: No acute findings. Gallbladder Ultrasound 12/19/24 00:13 IMPRESSION: Cholelithiasis with questioned mild gallbladder wall thickening. Reportedly positive sonographic Stone's sign. Findings are equivocal for acute calculus cholecystitis. Correlate with patient history/laboratory values. Further characterization with HIDA scan should be considered. Consider surgical consultation. ADDENDUM: 12/19/24 0155 THIS REPORT CONTAINS FINDINGS THAT MAY BE CRITICAL TO PATIENT CARE. The findings were verbally communicated via telephone conference with AXEL VIZCAINO at 1:54 AM CDT on 12/19/2024. The findings were acknowledged and understood. Laboratory Results WBC 17.06 10^3/uL (3.29-11.43) H 12/20/24 02:58 RBC 3.92 10^6/uL (3.85-5.65) 12/20/24 02:58 Hgb 11.50 g/dL (11.27-16.99) 12/20/24 02:58 Hct 35.0 % (36-47) L 12/20/24 02:58 MCV 89.3 fl (85-98) 12/20/24 02:58 MCH 29.3 pg (27-33) 12/20/24 02:58 MCHC 32.9 g/dL (30-55) 12/20/24 02:58 RDW 14.0 % (12.1-15.1) 12/20/24 02:58 Plt Count 421 10^3/cmm (157-399) H 12/20/24 02:58 MPV 9.1 fL (7.4-10.4) 12/20/24 02:58 Neut % (Auto) 79.2 % 12/20/24 02:58 Lymph % (Auto) 13.2 % 12/20/24 02:58 [place] % (Auto) 6.9 % 12/20/24 02:58 Eos % (Auto) 0.1 % 12/20/24 02:58 Baso % (Auto) 0.1 % 12/20/24 02:58 Neut # (Auto) 13.51 10^3/uL (1.8-7.7) H 12/20/24 02:58 Lymph # (Auto) 2.3 10^3/uL (0.8-4.8) 12/20/24 02:58 [place] # (Auto) 1.2 10^3/uL (0.2-0.9) H 12/20/24 02:58 Eos # (Auto) 0.0 10^3/uL (0.0-0.8) 12/20/24 02:58 Baso # (Auto) 0.0 10^3/uL (0.0-0.1) 12/20/24 02:58 Nucleated RBC % (auto) 0 % 12/20/24 02:58 Nucleated RBCs # 0.0 /100WBC 12/20/24 02:58 Sodium 139 mmol/L (136-145) 12/20/24 02:58 Potassium 4.2 mmol/L (3.5-5.1) 12/20/24 02:58 Chloride 104 mmol/L (98-107) 12/20/24 02:58 Carbon Dioxide 22 mmol/L (22-29) 12/20/24 02:58 Anion Gap 17.2 (5-19) 12/20/24 02:58 BUN 12 mg/dL (6-20) 12/20/24 02:58 Creatinine 0.8 mg/dL (0.5-0.9) 12/20/24 02:58 GFR Calculation 78.7 mL/min (90-130) L 12/20/24 02:58 Glucose 135 mg/dL (65-115) H 12/20/24 02:58 Calculated Osmolality 290 mOsm/kg (285-295) 12/20/24 02:58 Calcium 8.3 mg/dL (8.5-10.5) L 12/20/24 02:58 Phosphorus 3.3 mg/dL (2.5-4.5) 12/19/24 03:49 Magnesium 2.0 mg/dL (1.7-2.3) 12/19/24 03:49 Total Bilirubin 0.3 mg/dL (0.15-1.2) 12/19/24 03:49 AST 14 U/L (0-32) 12/19/24 03:49 ALT 14 U/L (0-33) 12/19/24 03:49 Alkaline Phosphatase 89 U/L (35-105) 12/19/24 03:49 Troponin T Baseline < 6 ng/L (0-10) 12/19/24 01:07 Total Protein 7.1 g/dL (6.6-8.7) 12/19/24 03:49 Albumin 3.8 g/dL (3.5-5.2) 12/19/24 03:49 Globulin 3.3 g/dL (1.3-4.6) 12/19/24 03:49 Lipase 27 U/L (13-60) 12/19/24 01:07 HCG, Qual Negative (Negative) 12/19/24 01:07 Urine Color Yellow (Yellow) 12/19/24 08:05 Urine Appearance Cloudy (CLEAR) A 12/19/24 08:05 Urine pH 6.5 (5-7) 12/19/24 08:05 Ur Specific [place] 1.023 (1.005-1.030) 12/19/24 08:05 Urine Protein Trace (Negative) A 12/19/24 08:05 Urine Glucose (UA) Negative (Normal) 12/19/24 08:05 Urine Ketones Negative (Negative) 12/19/24 08:05 Urine Blood 3+ (Negative) A 12/19/24 08:05 Urine Nitrate Negative (Negative) 12/19/24 08:05 Urine Bilirubin Negative (Negative) 12/19/24 08:05 Urine Urobilinogen 1.0 mg/dL (Negative) 12/19/24 08:05 Ur Leukocyte Esterase Trace (Negative) A 12/19/24 08:05 Urine RBC >100 /hpf (0-2) H 12/19/24 08:05 Urine WBC 11-20 /hpf (0-5) H 12/19/24 08:05 Ur Squamous Epith Cells 11-20 /hpf (0-5) H 12/19/24 08:05 Amorphous Sediment Not Reportable 12/19/24 08:05 Urine Bacteria 4+ /hpf (NONE) H 12/19/24 08:05 Hyaline Casts 4.11 /lpf 12/19/24 08:05 Vitals Last Vital Signs Temp 98.1 F 12/20/24 07:43 Pulse 68 12/20/24 07:43 Resp 18 12/20/24 07:43 BP 112/69 12/20/24 07:43 Pulse Ox 95 12/20/24 07:43 O2 Del Method Room Air 12/20/24 07:43 Discharge Plan Discharge Patient Disposition: Home Condition: Stable Prescriptions: New hydrocodone-acetaminophen 5-325 mg Tablet 1 tab PO Q6H PRN (Reason: Moderate Pain) 7 Days Qty: 20 0RF Discharge Order = DC NOW: Discharge Order (Routine); Ordered 12/20/24 Ordered By: Abraham Foster Referrals: Jeffry Corrales MD [Physician, General Surgery] - 01/02/25 11:15 am Referral Note: Stoney Browne MD [Primary Care Provider, [facility]] - 12/25/24 9:00 am Discharge Diet: Regular Discharge Activity: Increase activity as tolerated Patient Instructions: Hydrocodone/Acetaminophen (By mouth), Cholecystitis (GEN), Low Fat Diet (DC), Acute Wound Care (DC), Laparoscopic Cholecystectomy (DC), Opioid Safety, Post Anesthesia Care, Patient Portal & Shanel Instructions Activity Restrictions/Additional Instructions: Return for worsening vomiting abdominal pain or fevers Discharge Attestations Time Spent in Discharge Care*: less than 30 min Quality Metrics Clinical Quality Measures [ No reported AMI, CVA or VTE this stay] Coding Level of Care Code 79084 Diagnoses Acute cholecystitis K81.0 Time Spent (min) 20
--- NOTE | 2024-12-20 10:08 | PC.CHAP ---
Pastoral Care Encounter/Spiritual Assessment Type of Contact [] Declined director of recruitment and admissions visit [] Patient/Family/Request visit [] Outpatient visit [] Follow-up visit [] Physician referral [] Code/Alert [] Routine visit [] Staff referral [] Actively dying [] Patient sleeping [] Family support [] [x] Out of room [] Palliative care [] [] Receiving care in room [] Pre-surgical visit [] Trauma [] Long length of stay [] ICU visit [] Other: Relational/Emotional Strength [] Patient feels connected with others/family/visitors/staff [] Distress [] Loneliness/isolation [] Abandonment Spirituality of Patient [] Person of Lauren [] Attends Church of their Lauren [] Believes in Prayer [] Reads Bible or Advent materials [] There are Spiritual issues to be addressed Drying And Winding Supervisor Interventions [] Prayer [] Active listening [] Non-anxious presence [] Spiritual/emotional support [] Crisis/trauma care [] Spiritual counseling [] Bereavement support [] Provided bereavement packet [] Provided Bible/devotional materials [] Provided toy/stuffed animal, coloring book to patient or family member [] Provided Communion [] Anointing/Wells [] Salvation [] Completed spiritual assessment [] Other: Impact on Illness or Injury [] Angry [] Fearful [] Anxious [] Often cries [] Exhaustion [] Unable to work [] Unable to attend restorationism [] Unable to walk/stand [] Unable to read [] Unable to drive [] Unable to eat/drink [] Unable to sleep [] Unable to be with family [] Patient intubated [] Other: Summary Time spent with patient
[2024-12-20 10:51] VITALS: BP 112/69; PULSE 68; RESP 18; TEMP 36.7; O2SAT 95
== END 2024-12-20 08:45 | disposition home or self-care (01) ==
LOC: ER 12-19 00:16 → MEDSURG 12-19 02:28
PROVIDERS: Surgery; Admitting Provider Internal Medicine; Emergency Provider Emergency Medicine; PCP Family Medicine; Visit Provider Internal Medicine
PROC: 0FT44ZZ Resection of Gallbladder, Percutaneous Endoscopic Approach (ICD-10-PCS; CPT 47562; principal; 2024-12-19 11:05)
DX: K80.10 Calculus of gallbladder with chronic cholecystitis without obstruction (principal); E66.01 Morbid (severe) obesity due to excess calories; Z68.42 Body mass index [BMI] 45.0-49.9, adult; Z87.891 Personal history of nicotine dependence; D72.829 Elevated white blood cell count, unspecified; E86.0 Dehydration
CPT/HCPCS: 47562; 36415; 71045; 76705; 80048; 80053; 81001; 83690; 83735; 84100; 84484; 84703; 85025; 88304; 93005; 96365; 96372; 96375; 99285; G0378; J0131; J0330; J0690; J1171; J1650; J1885; J2250; J2405; J2543; J2704; J2765; J3010; J3490; J7030; J7120; J9999